=== PATIENT | male | born 1980 | race Caucasian/White ===

== ENCOUNTER 2019-11-06 06:19 | Day surgery (SDC) | payer OTHER ==
[~2019-11-06] VITALS: Ht 182.9 cm; Wt 96.0 kg
[2019-11-06 06:50] VITALS: BP 133/92; PULSE 80; TEMP 98.5
[2019-11-06] MEDS ORDERED: ZOCOR 40MG40 MG PO (06:53)
[2019-11-06 09:00] VITALS: BP 123/83; PULSE 95; TEMP 98.3
--- NOTE | 2019-11-06 09:00 | NUR ---
Patient arrives to [facility] via cart, accompanied by Endo RN Antonella. Patient is drowsy, but oriented. He ambulates with steady gait to chair in room. Monitoring applied - VSS and WNL on room air. He denies pain or nausea. Requests and received a muffin and juice.
[2019-11-06 09:15] VITALS: BP 109/84; PULSE 79
--- NOTE | 2019-11-06 09:15 | NUR ---
Patient given water. He denies pain or nausea.
--- NOTE | 2019-11-06 09:28 | NUR ---
Dr. Dickerson at the bedside.
[2019-11-06 09:30] VITALS: BP 118/82; PULSE 77
--- NOTE | 2019-11-06 09:45 | NUR ---
Discharge criteria has been met. Discharge instructions discussed with patient, he denies any questions and verbalizes understanding. He changes to his clothing independently. He is escorted to the exit via wheelchair by staff. He develops nausea with small amount of clear emesis while waiting for his ride to pull up. He states he feels fine to go home still. He is discharged to home with ride at 0945.
== END 2019-11-06 09:45 | disposition home or self-care (01) ==
LOC: SDCO 06:19
DX: R19.7 Diarrhea, unspecified (principal); E78.00 Pure hypercholesterolemia, unspecified; F17.210 Nicotine dependence, cigarettes, uncomplicated
CPT/HCPCS: J2250; J3010; J7030